=== PATIENT | female | born 1935 | race Caucasian/White ===

== ENCOUNTER 2017-02-05 12:46 | Inpatient (IN) | payer MEDICARE ==
[2017-02-05] MEDS ORDERED: IPRATROPIUM/ALBUTEROL (0.5MG/3MG) NEB INH ONE (13:06)
[2017-02-05] MEDS ORDERED: 0.9 % SODIUM CHLORIDE 1000ML 1,000 ML IV PRN ×2 (13:21→16:53)
--- NOTE | 2017-02-05 13:25 | Emergency Department Record ---
History of Present Illness - General Chief Complaint: Difficulty Breathing Stated Complaint: ANN Time Seen by Provider: 02/05/17 12:49 Source: Patient, Family, EMS, RN notes reviewed - History of Present Illness Initial Comments: EMS brought her to the ED . Confused and only oriented to name only. Fever of 101.6 by EMS. cough No chest pain.Pulse ox 84 % at scene. Improved with two liters with oxgen - Related Data Home Medications Medication Instructions Recorded Confirmed Last Taken Latanoprost 0.005% Opth Felisa 2.5 ml OP DAILY 01/25/14 02/05/17 02/05/17 [Xalatan] Fluticasone/Salmeterol [Advair 1 puff INH ASDIR 02/05/17 02/05/17 02/05/17 250-50 Diskus] Furosemide [Lasix] 20 mg PO WEEKLY 02/05/17 02/05/17 02/04/17 Metoprolol Succinate [Toprol Xl] 25 mg PO DAILY 02/05/17 02/05/17 02/05/17 Rivaroxaban [Xarelto] 20 mg PO DAILY 02/05/17 02/05/17 02/05/17 Spironolactone [Aldactone] 25 mg PO ASDIR 02/05/17 02/05/17 02/05/17 Allergies Allergy/AdvReac Type Severity Reaction Status Date / Time Carbapenems Allergy Unknown RASH Verified 02/05/17 13:46 cefaclor Allergy Unknown RASH Verified 02/05/17 13:46 Cephalosporins Allergy Unknown RASH Verified 02/05/17 13:46 erythromycin base Allergy Unknown RASH Verified 02/05/17 13:46 Macrolide Antibiotics Allergy Unknown RASH Verified 02/05/17 13:46 Penicillins Allergy Unknown RASH Verified 02/05/17 13:46 tetracycline Allergy Unknown RASH Verified 02/05/17 13:46 Allergies: Allergy Unknown RASH Uncoded 01/07/14 12:07 Review of Systems Reviewed: No additional complaints except as noted below Constitutional: Reports: As per HPI. Denies: Chills, Fever, Malaise, Night sweats, Weakness, Weight change Eyes: Reports: As per HPI. Denies: Eye discharge, Eye pain, Photophobia, Vision change ENT: Reports: As per HPI. Denies: Congestion, Dental pain, Ear pain, Epistaxis , Hearing loss, Throat pain Respiratory: Reports: As per HPI, Cough. Denies: Dyspnea, Hemoptysis, Stridor, Wheezes Cardiovascular: Reports: As per HPI. Denies: Arrhythmia, Chest pain, Dyspnea on exertion, Edema, Murmurs, Orthopnea, Palpitations, Paroxysmal nocturnal dyspnea, Rheumatic Fever, Syncope Endocrine: Reports: As per HPI. Denies: Fatigue, Heat or cold intolerance, Polydipsia, Polyuria Gastrointestinal: Reports: As per HPI. Denies: Abdominal pain, Constipation, Diarrhea, Hematemesis, Hematochezia, Melena, Nausea, Vomiting Genitourinary: Reports: As per HPI. Denies: Abnormal menses, Discharge, Dyspareunia, Dysuria, Frequency, Hematuria, Incontinence, Retention, Urgency Musculoskeletal: Reports: As per HPI. Denies: Arthralgia, Back pain, Gout, Joint swelling, Myalgia, Neck pain Skin: Reports: As per HPI. Denies: Bruising, Change in color, Change in hair/ nails, Lesions, Pruritus, Rash Neurological: Reports: As per HPI. Denies: Abnormal gait, Confusion, Headache, Numbness, Paresthesias, Seizure, Tingling, Tremors, Vertigo, Weakness Psychiatric: Reports: As per HPI. Denies: Anxiety, Auditory hallucinations, Depression, Homicidal thoughts, Suicidal thoughts, Visual hallucinations Hematological/Lymphatic: Reports: As per HPI. Denies: Anemia, Blood Clots, Easy bleeding, Easy bruising, Swollen glands Past Medical History - SOCIAL HISTORY Smoking Status: Former smoker - RESPIRATORY Hx Respiratory Disorders: Yes Hx COPD: Yes (smoker quit 2 weeks ago) - CARDIOVASCULAR Hx Cardio Disorders: No - NEURO Hx Neuro Disorders: No - GI Hx GI Disorders: Yes Hx Nausea/Vomiting: Yes - Hx Genitourinary Disorders: No - ENDOCRINE Hx Endocrine Disorders: No - MUSCULOSKELETAL Hx Musculoskeletal Disorders: Yes Hx Arthritis: Yes (knees jeison) - PSYCH Hx Psych Problems: No - HEMATOLOGY/ONCOLOGY Hx Hematology/Oncology Disorders: No Physical Exam - General General Appearance: Alert, Cooperative, Mild distress - Head Head exam: Normal inspection - Eye Eye exam: Normal appearance, PERRL Pupils: Normal accommodation - ENT ENT exam: Normal exam, Mucous membranes moist, Normal external ear exam, Normal orophraynx, TM's normal bilaterally Ear exam: Normal external inspection. negative: External canal tenderness Nasal Exam: Normal inspection. negative: Discharge, Sinus tenderness Mouth exam: Normal external inspection, Tongue normal Teeth exam: Normal inspection. negative: Dental caries Throat exam: Normal inspection. negative: Tonsillar erythema, Tonsillar exudate - Neck Neck exam: Normal inspection, Full ROM. negative: Tenderness - Respiratory Respiratory exam: Normal lung sounds bilaterally. negative: Respiratory distress - Cardiovascular Cardiovascular Exam: Regular rate, Normal rhythm, Normal heart sounds - GI/Abdominal GI/Abdominal exam: Soft, Normal bowel sounds. negative: Tenderness - Rectal Rectal exam: Deferred - exam: Deferred - Extremities Extremities exam: Normal inspection, Full ROM, Normal capillary refill, Other ( skin slightly red right lower leg). negative: Tenderness - Back Back exam: Reports: Normal inspection, Full ROM. Denies: Muscle spasm, Rash noted, Tenderness - Neurological Neurological exam: Alert, Normal gait, Oriented X3, Reflexes normal - Psychiatric Psychiatric exam: Normal affect, Normal mood - Skin Skin exam: Dry, Intact, Normal color, Warm Course Vital Signs 02/05/17 13:09 Pulse Rate 113 H Respiratory 19 Rate Pulse Ox 91 L Medical Decision Making - Lab Data Result diagrams: 02/05/17 12:50 02/05/17 12:50 Disposition Clinical Impression: Hypoxemia Sepsis Qualifiers: Sepsis type: sepsis due to unspecified organism Qualified Code(s): A41.9 - Sepsis, unspecified organism Altered mental state Qualifiers: Altered mental status type: disorientation Qualified Code(s): R41.0 - Disorientation, unspecified Forms: Patient Portal Access Quality - Quality Measures Quality Measures: N/A - Blood Pressure Screening Blood Pressure Classification: Pre-Hypertensive BP Reading Systolic Measurement: 132 Diastolic Measurement: 70 Screening for High Blood Pressure: < Pre-Hypertensive BP, F/U Documented > [ [id number]] Pre-Hypertensive Follow-up Interventions: Referral to alternative/primary care provider.
[2017-02-05] MEDS ORDERED: ASPIRIN 81 MG CHEWABLE TABLET PO ONE (13:27)
[2017-02-05 13:52] LABS: BASO % 0.2 % (0-6); EOS % 0.1 % (0-6); HEMATOCRIT 44.9 % (35.0-47.0); HEMOGLOBIN 14.9 gm/dl (11.6-16.0); LYMPH % 2.2 % (16-45); MEAN CELL VOLUME 96.1 fl (81-97); MEAN CORPUSCULAR HEMOGLOBIN 31.9 pg (27-33); MEAN CORPUSCULAR HGB CONC 33.2 g/dl (32-36); MEAN PLATELET VOLUME 10.3 fl (7.4-10.4); MONO % 1.8 % (0-9); PLATELET COUNT 317 K/uL (130-400); RED BLOOD COUNT 4.67 M/uL (3.80-5.40); WHITE BLOOD COUNT W/O DIFF 17.1 K/uL (4.2-12.2)
[2017-02-05 14:03] LABS: ANION GAP 10.1 (7-16); BLOOD UREA NITROGEN 10 mg/dL (7-17); CARBON DIOXIDE 28.9 mmol/L (22-30); CREATININE 0.6 mg/dL (0.52-1.04); EST GLOMERULAR FILTRATION RATE > 60 ml/min; GLUCOSE,RANDOM 105 mg/dL (70-110)
[2017-02-05 14:10] LABS: PLATELET ESTIMATE NORMAL (NORMAL)
[2017-02-05 14:18] LABS: TROPONIN I < 0.012 ng/mL (0.00-0.034)
[2017-02-05] MEDS ORDERED: LEVOFLOXACIN/D5W 750 MG/150 ML BAG IVPB ONE (16:04)
[2017-02-05 16:23] LABS: URINE APPEARANCE CLEAR; URINE BILIRUBIN NEGATIVE (NEGATIVE); URINE BLOOD NEGATIVE (NEGATIVE); URINE COLOR YELLOW; URINE GLUCOSE (UA) NEGATIVE (NEGATIVE); URINE KETONE NEGATIVE (NEGATIVE); URINE LEUKOCYTE ESTERASE NEGATIVE (NEGATIVE); URINE NITRITE NEGATIVE (NEGATIVE); URINE PROTEIN NEGATIVE (NEGATIVE); URINE UROBILINOGEN 0.2 E.U./dL (0.20 - 1.00)
[2017-02-05] MEDS ORDERED: ACETAMINOPHEN 500 MG TABLET PO PRN (16:53)
[2017-02-05] MEDS ORDERED: ALBUTEROL SULFATE (0.083%) 2.5 MG/3 ML NEB INH PRN (16:53)
[2017-02-05] MEDS ORDERED: AL HYDROX/MAG HYDROX 30ML UD PO PRN (16:53)
[2017-02-05] MEDS ORDERED: LATANOPROST 0.005% OPTH SOLUTION 2.5ML BOTTLE OPTH SCH (17:00)
[2017-02-05] MEDS ORDERED: ONDANSETRON HCL IV 4 MG/2 ML VIAL IVP ONE (17:32)
[2017-02-05] MEDS: FLUTICASONE/SALMETEROL 250/50 DISKUS INH SCH (18:21)
[2017-02-05] MEDS: IPRATROPIUM/ALBUTEROL (0.5MG/3MG) NEB INH SCH ×2 (18:22→21:52)
[2017-02-05] MEDS ORDERED: PNEUM 23-VAL ADULT IM ONE (18:31)
[2017-02-05] MEDS: METHYLPREDNISOLONE PF 125MG/VIAL IVP SCH (19:08)
[2017-02-05] MEDS: LEVOFLOXACIN/D5W 750 MG/150 ML BAG IVPB SCH (19:09)
[2017-02-05] MEDS: METOPROLOL SUCC 25 MG TAB.ER PO SCH (20:06)
[2017-02-05] MEDS ORDERED: ONDANSETRON HCL IV 4 MG/2 ML VIAL IVP PRN (21:40)
[2017-02-06] MEDS: METHYLPREDNISOLONE PF 125MG/VIAL IVP SCH ×3 (00:46→16:46)
[2017-02-06] MEDS ORDERED: 0.9 % SODIUM CHLORIDE 1000ML 1,000 ML IV PRN ×2 (06:41→12:56)
[2017-02-06] MEDS: FLUTICASONE/SALMETEROL 250/50 DISKUS INH SCH ×2 (07:01→18:42)
[2017-02-06] MEDS: IPRATROPIUM/ALBUTEROL (0.5MG/3MG) NEB INH SCH ×6 (07:01→21:24)
--- NOTE | 2017-02-06 07:12 | CT SCAN REPORT ---
EXAM: CT OF THE HEAD WITHOUT CONTRAST HISTORY: DIFFICULTY BREATHING. COUGH. CONFUSION. TECHNIQUE: Routine noncontrast CT images of the head were obtained. FINDINGS: The ventricles, basal cisterns, and sulci are minimally prominent consistent with generalized cerebral atrophy. There is periventricular hypoattenuation likely related to chronic microvascular ischemia. No evidence of acute ischemia. No intracranial mass or hemorrhage. Moderate left maxillary sinus mucosal thickening. IMPRESSION: 1. NO ACUTE INTRACRANIAL ABNORMALITY. 2. SENESCENT CHANGES. 3. MAXILLARY SINUSITIS. JOB NUMBER: [id number] [facility]
--- NOTE | 2017-02-06 07:15 | RADIOLOGY REPORT ---
EXAM: CHEST, TWO VIEWS HISTORY: FEVER AND COUGH FOR TWO DAYS. WEAKNESS. CONFUSION. TECHNIQUE: Two views of the chest were obtained. Comparison: 02/14/14. FINDINGS: Two leads overlie the chest. The cardiomediastinal silhouette is stable. Chronic interstitial prominence is noted. No convincing acute abnormality. No pleural effusions. IMPRESSION: STABLE CHEST. CHRONIC INTERSTITIAL PROMINENCE. PLEASE NOTE GIVEN INTERSTITIAL PROMINENCE, SUBTLE EARLY INTERSTITIAL INFILTRATES NOT EXCLUDED. JOB NUMBER: [id number] [facility]
[2017-02-06] MEDS: LATANOPROST 0.005% OPTH SOLUTION 2.5ML BOTTLE OPTH SCH ×2 (10:30→22:25)
[2017-02-06] MEDS: METOPROLOL SUCC 25 MG TAB.ER PO SCH (10:30)
[2017-02-06] MEDS: RIVAROXABAN 20 MG TABLET PO SCH (10:30)
--- NOTE | 2017-02-06 12:36 | History & Physical ---
History of Present Illness - Date of Service Date of Service for History & Physical: 02/06/17 - History of Present Illness Admitting Diagnosis: bronchitis. copd. hypoxia. sepsis. possible cellulitis of the right lower leg History of Present Illness: 81 y/o female with 1 day history of confusion and fever admitted for hypoxemia, altered mental status changes, possible sepsis, questionable community-acquired pneumonia, questionable RLE cellulitis. Past medical history includes former smoker (quit 2013), CHF, COPD, A-Fib, bilat knee arthritis. 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 Otherwise had been feeling well up until that time. After episode of diarrhea felt shaky and the next thing she knew she was in an ambulance en route to [facility]. She reports she had the Prevnar-13 last year with her original pneumonia vaccination < 10 years ago. Had pneumonia last year, and prior to that, had left lobe pneumonia in high school. While in the ED was oriented to name only, reported fever of 101.6 by EMS staff ( afebrile upon arrival), SPO2 84% on the scene. CT head with no acute intracranial abnormality, + maxillary sinusitis. CXR chronic interstitial prominence, subtle early interstitial infiltrates not excluded. D-dimer 0.21, Na 129, WBC 17.1. Cardiac enzymes normal. U/A negative. SPO2 91-94% on 2L. Laboratory Results WBC 17.1 K/uL (4.2-12.2) H 02/05/17 12:50 RBC 4.67 M/uL (3.80-5.40) 02/05/17 12:50 Hgb 14.9 gm/dl (11.6-16.0) 02/05/17 12:50 Hct 44.9 % (35.0-47.0) 02/05/17 12:50 MCV 96.1 fl (81-97) 02/05/17 12:50 MCH 31.9 pg (27-33) 02/05/17 12:50 MCHC 33.2 g/dl (32-36) 02/05/17 12:50 RDW 13.0 % (11.5-14.5) 02/05/17 12:50 Plt Count 317 K/uL (130-400) 02/05/17 12:50 MPV 10.3 fl (7.4-10.4) 02/05/17 12:50 Neutrophils % 94.0 % (47-80) H 02/05/17 12:50 Band Neutrophils % 2.0 % (0-5) 02/05/17 12:50 Lymphocytes % 2.2 % (16-45) L 02/05/17 12:50 Monocytes % 1.8 % (0-9) 02/05/17 12:50 Eosinophils % 0.1 % (0-6) 02/05/17 12:50 Basophils % 0.2 % (0-6) 02/05/17 12:50 Lymphocytes 2.0 % (16-45) L 02/05/17 12:50 Monocytes 2.0 % (0-9) 02/05/17 12:50 Platelet Estimate Normal (NORMAL) 02/05/17 12:50 RBC Morphology Normal 02/05/17 12:50 D-Dimer 0.21 mg/L FEU (0-0.59) 02/05/17 12:50 Sodium 129 mmol/L (136-145) L 02/05/17 12:50 Potassium 3.7 mmol/L (3.5-5.1) 02/05/17 12:50 Chloride 90 mmol/L (98-107) L 02/05/17 12:50 Carbon Dioxide 28.9 mmol/L (22-30) 02/05/17 12:50 Anion Gap 10.1 (7-16) 02/05/17 12:50 BUN 10 mg/dL (7-17) 02/05/17 12:50 Creatinine 0.6 mg/dL (0.52-1.04) 02/05/17 12:50 Estimated GFR > 60 ml/min 02/05/17 12:50 Random Glucose 105 mg/dL (70-110) 02/05/17 12:50 Calcium 8.7 mg/dL (8.5-10.1) 02/05/17 12:50 Troponin I < 0.012 ng/mL (0.00-0.034) 02/05/17 12:50 Urine Color Yellow 02/05/17 16:10 Urine Appearance Clear 02/05/17 16:10 Urine pH 5.5 (5.0-8.0) 02/05/17 16:10 Ur Specific [place] 1.020 (1.002-1.030) 02/05/17 16:10 Urine Protein Negative (NEGATIVE) 02/05/17 16:10 Urine Glucose (UA) Negative (NEGATIVE) 02/05/17 16:10 Urine Ketones Negative (NEGATIVE) 02/05/17 16:10 Urine Blood Negative (NEGATIVE) 02/05/17 16:10 Urine Nitrite Negative (NEGATIVE) 02/05/17 16:10 Urine Bilirubin Negative (NEGATIVE) 02/05/17 16:10 Urine Urobilinogen 0.2 E.U./dL (0.20 - 1.00) 02/05/17 16:10 Ur Leukocyte Esterase Negative (NEGATIVE) 02/05/17 16:10 02/06/17- resting in bed comfortably, A&o x 3. Reports she " is feeling like a million bucks". Denies chills, tremors, nausea, diarrhea, abdominal pain. Has been afebrile since admission. SPO2 96% 2L. Denies ANN, wheezing. Does continue to have a dry cough. She reports her blood pressure typically runs 90's/60-70. Denies any leg pain or discomfort today. PCP: Dr Quinn Travel Screening - Travel/Exposure Within Last 30 Days Have you traveled within the last 30 days?: No - Travel/Exposure Within Last Year Have you traveled outside the [place] in the last year?: No - Additonal Travel Details Have you been exposed to anyone with a communicable illness?: No - Travel Symptoms Symptom Screening: Fever (Subjective), Fever (GT 100.4), Weakness, Fatigue, Diarrhea, Vomiting, Lack of Appetite, Chills Review of Systems Constitutional: Reports: As per HPI. Denies: Chills, Fever, Malaise, Night sweats, Weakness, Weight change Eyes: Reports: As per HPI. Denies: Eye discharge, Eye pain, Photophobia, Vision change ENT: Reports: As per HPI. Denies: Congestion, Dental pain, Ear pain, Epistaxis , Hearing loss, Throat pain Respiratory: Reports: As per HPI, Cough. Denies: Dyspnea, Hemoptysis, Stridor, Wheezes Cardiovascular: Reports: As per HPI. Denies: Arrhythmia, Chest pain, Dyspnea on exertion, Edema, Murmurs, Orthopnea, Palpitations, Paroxysmal nocturnal dyspnea, Rheumatic Fever, Syncope Endocrine: Reports: As per HPI. Denies: Fatigue, Heat or cold intolerance, Polydipsia, Polyuria Gastrointestinal: Reports: As per HPI. Denies: Abdominal pain, Constipation, Diarrhea, Hematemesis, Hematochezia, Melena, Nausea, Vomiting Genitourinary: Reports: As per HPI. Denies: Abnormal menses, Discharge, Dyspareunia, Dysuria, Frequency, Hematuria, Incontinence, Retention, Urgency Musculoskeletal: Reports: As per HPI. Denies: Arthralgia, Back pain, Gout, Joint swelling, Myalgia, Neck pain Skin: Reports: As per HPI. Denies: Bruising, Change in color, Change in hair/ nails, Lesions, Pruritus, Rash Neurological: Reports: As per HPI. Denies: Abnormal gait, Confusion, Headache, Numbness, Paresthesias, Seizure, Tingling, Tremors, Vertigo, Weakness Psychiatric: Reports: As per HPI. Denies: Anxiety, Auditory hallucinations, Depression, Homicidal thoughts, Suicidal thoughts, Visual hallucinations Hematological/Lymphatic: Reports: As per HPI. Denies: Anemia, Blood Clots, Easy bleeding, Easy bruising, Swollen glands Past Medical History - SOCIAL HISTORY Smoking Status: Former smoker - RESPIRATORY Hx Respiratory Disorders: Yes Hx Bronchitis: Yes Hx COPD: Yes (smoker quit 2 weeks ago) Hx Pneumonia: Yes - CARDIOVASCULAR Hx Cardio Disorders: Yes Hx CHF: Yes Hx Irregular Heartbeat: Yes (afib) - NEURO Hx Neuro Disorders: No - GI Hx GI Disorders: Yes Hx Reflux: Yes Hx Nausea/Vomiting: Yes - Hx Genitourinary Disorders: No - ENDOCRINE Hx Endocrine Disorders: No - MUSCULOSKELETAL Hx Musculoskeletal Disorders: Yes Hx Arthritis: Yes (knees jeison) - PSYCH Hx Psych Problems: No - HEMATOLOGY/ONCOLOGY Hx Hematology/Oncology Disorders: No Hx Bruising: Yes (xarelto) Family Medical History Any Significant Family History?: No H&P Meds/Allergies - Allergies Allergies: Allergies Allergy/AdvReac Type Severity Reaction Status Date / Time Carbapenems Allergy Unknown RASH Verified 02/05/17 13:46 cefaclor Allergy Unknown RASH Verified 02/05/17 13:46 Cephalosporins Allergy Unknown RASH Verified 02/05/17 13:46 erythromycin base Allergy Unknown RASH Verified 02/05/17 13:46 Macrolide Antibiotics Allergy Unknown RASH Verified 02/05/17 13:46 Penicillins Allergy Unknown RASH Verified 02/05/17 13:46 tetracycline Allergy Unknown RASH Verified 02/05/17 13:46 Allergies: Allergy Unknown RASH Uncoded 01/07/14 12:07 - Home Medications Home Medications Medication Instructions Recorded Confirmed Last Taken Latanoprost 0.005% Opth Felisa 2.5 ml OP QHS 01/25/14 02/05/17 02/05/17 [Xalatan] Fluticasone/Salmeterol [Advair 1 puff INH BIDAC 02/05/17 02/05/17 02/05/17 250-50 Diskus] Furosemide [Lasix] 10 mg PO ASDIR 02/05/17 02/05/17 Unknown Metoprolol Succinate [Toprol Xl] 25 mg PO QHS 02/05/17 02/05/17 02/05/17 Rivaroxaban [Xarelto] 20 mg PO DAILY 02/05/17 02/05/17 02/05/17 Spironolactone [Aldactone] 25 mg PO QAM 02/05/17 02/05/17 02/05/17 25 - Active Medications Active Medications: Current Medications Acetaminophen (Tylenol 500mg Tab) 500 mg PO Q6H PRN PRN Reason: PAIN/TEMP Al Hydroxide/Mg Hydroxide (Maalox) 30 ml PO Q4H PRN PRN Reason: GI UPSET Albuterol Sulfate () 2.5 mg INH RESP.Q1H PRN PRN Reason: DIFFICULTY IN BREATHING Albuterol/Ipratropium (Duoneb) 3 ml INH RESP.Q4H.[facility] Last Admin: 02/06/17 10:10 Dose: Not Given Levofloxacin/Dextrose (Levaquin 750mg Ivpb) 750 mg in 150 mls @ 125 mls/hr IVPB Q24H NAYELI Stop: 02/10/17 17:01 Last Admin: 02/05/17 19:09 Dose: Not Given Sodium Chloride () 1,000 mls @ 75 mls/hr IV .[id number] PRN PRN Reason: LARGE VOLUME IV Latanoprost (Xalatan) 1 drop OPTH DAILY NAYELI Last Admin: 02/06/17 10:30 Dose: Not Given Methylprednisolone Sodium Succinate (Solu-Medrol) 60 mg IVP Q8H NAYELI Last Admin: 02/06/17 10:30 Dose: 60 mg Metoprolol Succinate (Toprol Xl) 25 mg PO DAILY [facility] Last Admin: 02/06/17 10:30 Dose: Not Given Ondansetron HCl (Zofran) 4 mg IVP Q6H PRN PRN Reason: NAUSEA Last Admin: 02/05/17 21:44 Dose: 4 mg Rivaroxaban (Xarelto) 20 mg PO DAILY [facility] Last Admin: 02/06/17 10:30 Dose: 20 mg Fluticasone/Salmeterol (Advair 250/50) 1 puff INH ASDIR [facility] Last Admin: 02/06/17 07:01 Dose: 1 puff Physical Exam - Vital Signs Vital Signs: Vital Signs - Last 24 Hrs Temp Pulse Pulse Pulse Resp BP BP 02/06/17 10:45 74 15 02/06/17 09:33 97.8 F 90/49 02/06/17 09:06 85 16 02/06/17 07:04 87 17 02/06/17 07:03 02/06/17 06:00 97.8 F 83 18 02/06/17 02:00 99.3 F 96 H 18 130/81 02/05/17 22:00 98.1 F 95 H 24 91/40 02/05/17 21:52 91 H 16 02/05/17 19:39 20 02/05/17 19:10 16 02/05/17 18:37 02/05/17 18:27 98.3 F 100 H 18 02/05/17 18:26 97 H 19 BP Pulse Ox 02/06/17 10:45 98 02/06/17 09:33 02/06/17 09:06 93/75 96 02/06/17 07:04 97 02/06/17 07:03 95 02/06/17 06:00 90/49 92 L 02/06/17 02:00 93 L 02/05/17 22:00 84/47 92 L 02/05/17 21:52 95 02/05/17 19:39 02/05/17 19:10 02/05/17 18:37 93 L 02/05/17 18:27 88/54 86 L 02/05/17 18:26 97 - General General Appearance: Alert, Oriented x3, Cooperative Limitations: No limitations - Head Head exam: Normal inspection - Eye Eye exam: Normal appearance, PERRL Pupils: Normal accommodation - ENT ENT exam: Normal exam, Mucous membranes moist, Normal external ear exam, Normal orophraynx, TM's normal bilaterally Ear exam: Normal external inspection. negative: External canal tenderness Nasal Exam: Normal inspection. negative: Discharge, Sinus tenderness Mouth exam: Normal external inspection, Tongue normal Teeth exam: Normal inspection. negative: Dental caries Throat exam: Normal inspection. negative: Tonsillar erythema, Tonsillar exudate - Neck Neck exam: Normal inspection, Full ROM. negative: Tenderness - Respiratory Respiratory exam: Normal lung sounds bilaterally. negative: Respiratory distress - Cardiovascular Cardiovascular Exam: Regular rate, Normal rhythm, Normal heart sounds Peripheral Pulses: 2+: Dorsalis Pedis (R), Dorsalis Pedis (L) - GI/Abdominal GI/Abdominal exam: Soft, Normal bowel sounds. negative: Tenderness - Rectal Rectal exam: Deferred - exam: Deferred - Extremities Extremities exam: Normal inspection, Full ROM, Normal capillary refill. negative: Pedal edema, Tenderness - Back Back exam: Reports: Normal inspection, Full ROM. Denies: Muscle spasm, Rash noted, Tenderness - Neurological Neurological exam: Alert, Normal gait, Oriented X3, Reflexes normal - Psychiatric Psychiatric exam: Normal affect, Normal mood - Skin Skin exam: Dry, Intact, Normal color, Warm. negative: Erythema Results - Labs Result Diagrams: 02/06/17 12:19 02/06/17 12:19 - Imaging and Cardiology Chest x-ray Status: Report reviewed (1- chronic interstitial prominence, 2- subtle ealry interstitial infiltrates not excluded) CT scan - head Status: Report reviewed (1- no acute intracranial abnormality, 2- + maxillary sinusitis) VTE H&P Assessment - Risk for VTE Risk for VTE: Yes Risk Level: Low Risk Assessment Date: 02/06/17 Risk Assessment Time: 12:40 VTE Orders Placed or Will Be Placed: Yes Plan - Inpatient Certification Inpatient Certification: Admit to inpatient care: Based on my medical assessment, after consideration of patient's risk factors (age, co-morbidities and patient presenting symptoms and acuity), I expect that this patient will remain in the hospital greater than or equal to two midnights and that the services needed warrant inpatient care because: Patient Risk Factors: [] Estimated length of stay: [] The patient may reasonably be expected to be discharged or transferred to a hospital within 96 hours after admission to [facility]. Services needed: [] Post hospital care (if known): [] I certify that my determination is in accordance with my understanding of Medicare requirements for reasonable and necessary inpatient services. - Detailed Diagnosis and Plan (1) Altered mental state Current Visit: Yes Status: Acute Qualifiers: Altered mental status type: disorientation Qualified Code(s): R41.0 - Disorientation, unspecified Base Code: R41.82 - ALTERED MENTAL STATUS, UNSPECIFIED Comment: 02/06/17 y/ o female admitted for 1 day history of diarrhea, altered mental status changes, febrile state, hypoxemia with preceeding 2 day history anorexia. CXR in ED with suspected pneumonia, CT head negative for acute intracranial process, + maxillary sinusitis. EKG NSR. WBC 17.1, D-dimer negative, cardiac enzymes negative, Na 129, U/A negative, afebrile upon arrival to ED, SBP< 100, RR 20, SPO2 91-96% on 2L. - qSOFA score upon arrival to ED-2 - likely etiology of infection lung infiltrates - O2 2L to keep SPO2>92% ( does not use at home) - BC x 2 pending- no growth to date - Levaquin 750mg Q 24 hours - Solumedrol 60mg Q 8hr - 0.9% NS @ 100ml/hr - Telemetry NSR - Advair 250/50 ( no known hx COPD but states her PCP treats all of her medical issues) (2) Hypoxemia Current Visit: Yes Status: Acute Base Code: R09.02 - HYPOXEMIA Comment: y/o female admitted for 1 day history of diarrhea, altered mental status changes, febrile state, hypoxemia with preceeding 2 day history anorexia. CXR in ED with suspected pneumonia, CT head negative for acute intracranial process, + maxillary sinusitis. EKG NSR. WBC 17.1, D-dimer negative , cardiac enzymes negative, Na 129, U/A negative, afebrile upon arrival to ED, SBP< 100, RR 20, SPO2 91-96% on 2L. - qSOFA score upon arrival to ED-2 - likely etiology of infection lung infiltrates - O2 2L to keep SPO2>92% ( does not use at home) - BC x 2 pending- no growth to date - Levaquin 750mg Q 24 hours - Solumedrol 60mg Q 8hr - 0.9% NS @ 75ml/hr - Advair 250/50 ( no known hx COPD but states her PCP treats all of her medical issues) (3) Sepsis Current Visit: Yes Status: Acute Qualifiers: Sepsis type: sepsis due to unspecified organism Qualified Code(s): A41.9 - Sepsis, unspecified organism Base Code: A41.9 - SEPSIS, UNSPECIFIED ORGANISM Comment: 02/06/17- 81 y/o female admitted for 1 day history of diarrhea, altered mental status changes, febrile state, hypoxemia with preceeding 2 day history anorexia. CXR in ED with suspected pneumonia, CT head negative for acute intracranial process, + maxillary sinusitis. EKG NSR. WBC 17.1, D-dimer negative, cardiac enzymes negative, Na 129, U/A negative, afebrile upon arrival to ED, SBP< 100, RR 20, SPO2 91-96% on 2L. Both legs appear very pino and slightly sunburnt. No warmth or tenderness - qSOFA score upon arrival to ED-2 - likely etiology of infection lung infiltrates - O2 2L to keep SPO2>92% ( does not use at home) - BC x 2 pending- no growth to date - Levaquin 750mg Q 24 hours - Solumedrol 60mg Q 8hr - 0.9% NS @ 75ml/hr - Advair 250/50 ( no known hx COPD but states her PCP treats all of her medical issues) (4) Hyponatremia Current Visit: No Status: Acute Base Code: E87.1 - HYPO-OSMOLALITY AND HYPONATREMIA Comment: 02/06/17- Na in ED 129 with acute change mental status prior to arrival to ED - Spironolactone may be part of causative factor - likely GI loss prior to arrival - increase IVF to NS @ 100ml/hr - salt rich broth given this am - CBC/CMP noon today (5) DVT prophylaxis Current Visit: Yes Status: Acute Base Code: [id number] - Comment: 02/06/17- On daily Xarelto, nursing to encourage frequent ambulation (6) DNR (do not resuscitate) Current Visit: Yes Status: Acute Base Code: Z66 - DO NOT RESUSCITATE Comment: 02/06/17- DNR during this hospitalization
[2017-02-06 12:42] LABS: HEMATOCRIT 40.8 % (35.0-47.0); HEMOGLOBIN 13.4 gm/dl (11.6-16.0); MEAN CELL VOLUME 96.2 fl (81-97); MEAN CORPUSCULAR HEMOGLOBIN 31.6 pg (27-33); MEAN CORPUSCULAR HGB CONC 32.8 g/dl (32-36); MEAN PLATELET VOLUME 9.9 fl (7.4-10.4); PLATELET COUNT 262 K/uL (130-400); RED BLOOD COUNT 4.24 M/uL (3.80-5.40); RED CELL DISTRIBUTION WIDTH 13.1 % (11.5-14.5); WHITE BLOOD COUNT W/O DIFF 14.5 K/uL (4.2-12.2)
[2017-02-06 12:59] LABS: ALB/GLOB RATIO 1.1 (1.1-1.8); ALBUMIN 3.5 gm/dL (3.5-5.0); ALKALINE PHOSPHATASE 137 U/L (38-126); ALT/SGPT 91 U/L (9-52); ANION GAP 9.9 (7-16); AST/SGOT 95 U/L (14-36); BILIRUBIN,TOTAL 1.09 mg/dL (0.2-1.3); BLOOD UREA NITROGEN 16 mg/dL (7-17); CARBON DIOXIDE 27.1 mmol/L (22-30); CREATININE 0.7 mg/dL (0.52-1.04); EST GLOMERULAR FILTRATION RATE > 60 ml/min; GLUCOSE,RANDOM 164 mg/dL (70-110); TOTAL PROTEIN 6.7 gm/dL (6.3-8.2)
[2017-02-06 13:12] LABS: PLATELET ESTIMATE NORMAL (NORMAL)
[2017-02-06] MEDS: LEVOFLOXACIN/D5W 750 MG/150 ML BAG IVPB SCH (16:46)
[2017-02-07] MEDS: IPRATROPIUM/ALBUTEROL (0.5MG/3MG) NEB INH SCH ×3 (06:22→14:12)
[2017-02-07 07:34] LABS: HEMOGLOBIN 12.9 gm/dl (11.6-16.0); MEAN CELL VOLUME 96.5 fl (81-97); MEAN CORPUSCULAR HEMOGLOBIN 31.9 pg (27-33); MEAN CORPUSCULAR HGB CONC 33.1 g/dl (32-36); MEAN PLATELET VOLUME 9.6 fl (7.4-10.4); PLATELET COUNT 287 K/uL (130-400); RED BLOOD COUNT 4.04 M/uL (3.80-5.40); WHITE BLOOD COUNT W/O DIFF 16.9 K/uL (4.2-12.2)
[2017-02-07 07:45] LABS: ALB/GLOB RATIO 1.1 (1.1-1.8); ALBUMIN 3.3 gm/dL (3.5-5.0); ALKALINE PHOSPHATASE 125 U/L (38-126); ALT/SGPT 67 U/L (9-52); ANION GAP 9.6 (7-16); AST/SGOT 45 U/L (14-36); BILIRUBIN,TOTAL 0.78 mg/dL (0.2-1.3); BLOOD UREA NITROGEN 16 mg/dL (7-17); CARBON DIOXIDE 28.4 mmol/L (22-30); CREATININE 0.6 mg/dL (0.52-1.04); EST GLOMERULAR FILTRATION RATE > 60 ml/min; GLUCOSE,RANDOM 132 mg/dL (70-110); TOTAL PROTEIN 6.2 gm/dL (6.3-8.2)
[2017-02-07] MEDS ORDERED: SPIRONOLACTONE 25 MG TAB PO SCH (10:00)
--- NOTE | 2017-02-07 10:30 | Discharge Summary ---
Providers Discharge Summary Date: 02/07/17 Date of admission: 02/05/17 18:14 Attending physician: AURY MAYA Primary care physician: Tammy Quinn Physical Exam - Vital Signs Vital Signs: Vital Signs - Last 24 Hrs Temp Pulse Pulse Resp BP BP Pulse Ox 02/07/17 09:42 91 H 17 99 02/07/17 09:25 97.7 F 95 H 16 100/60 95 02/07/17 06:22 86 18 100 02/07/17 05:38 97.6 F 87 18 105/70 97 02/07/17 02:00 97.7 F 98 H 16 105/63 98 02/06/17 21:24 93 H 18 100 02/06/17 21:00 92 H 16 02/06/17 19:59 98.1 F 91 H 18 101/60 97 02/06/17 18:43 93 H 16 100 02/06/17 17:24 96.8 F L 88 16 88/56 97 02/06/17 14:18 85 16 98 02/06/17 13:21 85 16 94/55 96 02/06/17 10:45 74 15 98 - General General Appearance: Alert, Oriented x3, Cooperative Limitations: No limitations - Head Head exam: Normal inspection - Eye Eye exam: Normal appearance, PERRL Pupils: Normal accommodation - ENT ENT exam: Normal exam, Mucous membranes moist, Normal external ear exam, Normal orophraynx, TM's normal bilaterally Ear exam: Normal external inspection. negative: External canal tenderness Nasal Exam: Normal inspection. negative: Discharge, Sinus tenderness Mouth exam: Normal external inspection, Tongue normal Teeth exam: Normal inspection. negative: Dental caries Throat exam: Normal inspection. negative: Tonsillar erythema, Tonsillar exudate - Neck Neck exam: Normal inspection, Full ROM. negative: Tenderness - Respiratory Respiratory exam: Normal lung sounds bilaterally. negative: Respiratory distress - Cardiovascular Cardiovascular Exam: Regular rate, Normal rhythm, Normal heart sounds Peripheral Pulses: 2+: Dorsalis Pedis (R), Dorsalis Pedis (L) - GI/Abdominal GI/Abdominal exam: Soft, Normal bowel sounds. negative: Tenderness - Rectal Rectal exam: Deferred - exam: Deferred - Extremities Extremities exam: Normal inspection, Full ROM, Normal capillary refill. negative: Pedal edema, Tenderness - Back Back exam: Reports: Normal inspection, Full ROM. Denies: Muscle spasm, Rash noted, Tenderness - Neurological Neurological exam: Alert, Normal gait, Oriented X3, Reflexes normal - Psychiatric Psychiatric exam: Normal affect, Normal mood - Skin Skin exam: Dry, Intact, Normal color, Warm. negative: Erythema Hospitalization - Hospitalization Admission Diagnosis: bronchitis. copd. hypoxia. sepsis. possible cellulitis of the right lower leg - Problem List/Discharge Diagnosis (1) Altered mental state Current Visit: Yes Status: Resolved Discharge Diagnosis: Altered mental status type: disorientation Qualified Code(s): R41.0 - Disorientation, unspecified Base Code: R41.82 - ALTERED MENTAL STATUS, UNSPECIFIED Comment: 02/07/17- 81 y/ o female admitted for 1 day history of diarrhea, altered mental status changes, febrile state, hypoxemia with preceeding 2 day history anorexia. CXR in ED with suspected pneumonia, CT head negative for acute intracranial process, + maxillary sinusitis. EKG NSR. WBC 17.1, D-dimer negative, cardiac enzymes negative, Na 129, U/A negative, afebrile upon arrival to ED, SBP< 100, RR 20, SPO2 91-96% on 2L. Sodium has since increased to 138. - qSOFA score upon arrival to ED-2 - likely etiology of infection lung infiltrates - O2 2L to keep SPO2>92% ( does not use at home) - BC x 2 pending- no growth to date - Levaquin 750mg Q 24 hours - Solumedrol 60mg Q 8hr - 0.9% NS @ 100ml/hr - Telemetry NSR - Advair 250/50 ( no known hx COPD but states her PCP treats all of her medical issues) (2) Hyponatremia Current Visit: No Status: Resolved Base Code: E87.1 - HYPO-OSMOLALITY AND HYPONATREMIA Comment: 02/07/17- Na in ED 129 with acute change mental status prior to arrival to ED. Today sodium 138. Significantly improved. - Spironolactone may be part of causative factor. this was held. Advise to see PCP regarding restaring - likely GI loss prior to arrival - increase IVF to NS @ 100ml/hr - salt rich broth given yesterday am - repeat labs in one week (3) Pneumonia Current Visit: Yes Status: Acute Discharge Diagnosis: Pneumonia type: due to unspecified organism Lung location: middle lobe of lung Base Code: J18.9 - PNEUMONIA, UNSPECIFIED ORGANISM Comment: 02/07- suspect pneumonia due to to 2 SIRS criteria, chest xray suspicous for esa infiltrate, hypoxemia per EMS and no other identifiable source of infection. Nguyễn cultured but awaiting culture results. Suspect slight rise in WBC due to steroid given yesterday. D/c since work of breathing is minimal. Treating for PNA and correcting sodium has significantly improved patient's picture. Patient eagar to go home and will plan on following up with PCP within the week. - Hospitalization Course Disposition: Home, Self-Care Abnormal Labs: Abnormal Lab Results 02/06/17 02/06/17 02/07/17 Range/Units 12:19 12:19 07:28 WBC 14.5 H 16.9 H (4.2-12.2) K/uL Neutrophils % 86.0 H 94.0 H (47-80) % Band Neutrophils % 12.0 H (0-5) % Lymphocytes 1.0 L 3.0 L (16-45) % Sodium 131 L (136-145) mmol/L Chloride 94 L (98-107) mmol/L Random Glucose 164 H (70-110) mg/dL Calcium 8.2 L (8.5-10.1) mg/dL AST 95 H (14-36) U/L ALT 91 H (9-52) U/L Alkaline Phosphatase 137 H (38-126) U/L Total Protein (6.3-8.2) gm/dL Albumin (3.5-5.0) gm/dL 02/07/17 Range/Units 07:28 WBC (4.2-12.2) K/uL Neutrophils % (47-80) % Band Neutrophils % (0-5) % Lymphocytes (16-45) % Sodium (136-145) mmol/L Chloride (98-107) mmol/L Random Glucose 132 H (70-110) mg/dL Calcium 8.2 L (8.5-10.1) mg/dL AST 45 H (14-36) U/L ALT 67 H (9-52) U/L Alkaline Phosphatase (38-126) U/L Total Protein 6.2 L (6.3-8.2) gm/dL Albumin 3.3 L (3.5-5.0) gm/dL Condition at Discharge: (2) Stable Discharge Medications - Discharge Medications Prescriptions: Levofloxacin [Levaquin] 500 mg PO DAILY #7 tablet Home Medications: Ambulatory Orders Latanoprost 0.005% Opth Felisa [Xalatan] 2.5 ml OP QHS 01/25/14 [Last Taken ] Fluticasone/Salmeterol [Advair 250-50 Diskus] 1 puff INH BIDAC 02/05/17 [Last Taken 02/05/17] Furosemide [Lasix] 10 mg PO ASDIR 02/05/17 [Last Taken Unknown] Metoprolol Succinate [Toprol Xl] 25 mg PO QHS 02/05/17 [Last Taken 02/05/17] Rivaroxaban [Xarelto] 20 mg PO DAILY 02/05/17 [Last Taken 02/05/17] Acetaminophen [Tylenol 500Mg Tab] 500 mg PO Q6H PRN 02/07/17 [Last Taken Unknown ] Levofloxacin [Levaquin] 500 mg PO DAILY #7 tablet 02/07/17 [Last Taken Unknown] Discharge Plan - Discharge Instructions Activity at Discharge: Increase Activity as Tolerated Diet at Discharge: Advance to Usual Diet
[2017-02-07] MEDS: RIVAROXABAN 20 MG TABLET PO SCH (10:34)
[2017-02-07] MEDS: METOPROLOL SUCC 25 MG TAB.ER PO SCH (10:34)
[2017-02-07] MEDS ORDERED: LATANOPROST 0.005% OPTH SOLUTION 2.5ML BOTTLE OPTH SCH (22:00)
[2017-02-08] MEDS ORDERED: FUROSEMIDE 20 MG TABLET PO SCH (10:00)
== END 2017-02-07 12:20 | disposition home or self-care (01) | DRG 194 ==
LOC: ER 12:46 → MEDSURG 18:14
PROVIDERS: ADMIT Family Medicine; ATTEND Family Medicine
DX: J18.9 Pneumonia, unspecified organism (principal); E87.1 Hypo-osmolality and hyponatremia; R41.82 Altered mental status, unspecified; R09.02 Hypoxemia
CPT/HCPCS: 99285 ×2; 94760; 96365; 96366; 96375; 84484; 80048; 81003; 85379; 85027; 71020; 70450; 94640 ×2; 94761; 93005; 93010; J2405; J1956; 80053; 99223; 99239; J2930

== ENCOUNTER 2017-04-06 07:01 | Day surgery (SDC) | payer MEDICARE ==
[2017-04-06] MEDS ORDERED: CIPROFLOXACIN HCL 0.0015 GM, PHENYLEPHRINE HCL 0.05 GM, KETOROLAC TROMETHAMINE 0.000625 GM MC ONE ×5 (14:30)
[2017-04-06] MEDS ORDERED: PROPOFOL 10 MG/ML VIAL IV ONE (15:02)
[2017-04-06] MEDS ORDERED: LIDOCAINE 2% MDV (20MG/ML) 20ML VIAL IV ONE (15:02)
--- NOTE | 2017-04-06 20:13 | Operative Note ---
DATE OF PROCEDURE: 04/06/17. PREOPERATIVE DIAGNOSIS: Nuclear sclerotic and posterior subcapsular cataract, right eye. POSTOPERATIVE DIAGNOSIS: Nuclear sclerotic and posterior subcapsular cataract, right eye. OPERATION: Phacoemulsification of cataractous lens with implantation of intraocular lens. LENS IMPLANT USED: Simons Model PCB00 + 19.0 diopters. COMPLICATIONS: None. PROCEDURE IN DETAIL: Following a retrobulbar and facial block, the patient was prepped and draped in the usual fashion for eye surgery. A lid speculum was placed in the right eye after which a 2.4 mm tunnel wound was placed at the temporal limbus and dissected into clear cornea. A paracentesis was placed at 2 o'clock hours to the left and right of the initial incision and the chamber deepened with Viscoelastic. The keratome was then used to enter the anterior chamber after which the continuous circular capsulorrhexis was accomplished without difficulty using a bent needle and a Utrata forceps. Hydrodissection and hydrodelineation of the lens was performed after which the nucleus of the lens was removed using the Phaco handpiece in the [id number] technique. The residual cortical material was irrigated and aspirated from the eye after which the bag and chamber were re-examined. The bag was re-inflated with Viscoelastic and the intraocular lens injected into the capsular bag where it centered well. The Viscoelastic was then copiously irrigated and aspirated from the eye after which the temporal tunnel wound and paracentesis were hydrated and the wounds were examined. They were noted to be watertight. The lid speculum was removed from the eye and the eye patched and shielded. The patient was transferred to the recovery room in satisfactory condition and given an appointment to be reexamined in the clinic later today or as directed by Dr. Coughlin. No complications. JOB NUMBER: [id number] [facility]
== END 2017-04-06 09:40 | disposition home or self-care (01) ==
LOC: SUR 07:01
PROVIDERS: ATTEND Ophthalmology
DX: H25.11 Age-related nuclear cataract, right eye (principal); I48.2 Chronic atrial fibrillation; Z79.01 Long term (current) use of anticoagulants; I10 Essential (primary) hypertension

== ENCOUNTER 2017-04-20 06:53 | Day surgery (SDC) | payer MEDICARE ==
[2017-04-20] MEDS ORDERED: LIDOCAINE 2% MDV (20MG/ML) 20ML VIAL IV ONE ×2 (14:04→15:40)
[2017-04-20] MEDS ORDERED: EPINEPHRINE 1 MG/ML AMPUL SQ ONE (14:04)
[2017-04-20] MEDS ORDERED: TETRACAINE HCL 0.5% 15 ML OPTH BTL OPTH ONE (14:04)
[2017-04-20] MEDS ORDERED: NEOMYCIN/POLY./DEXAM OPTH OINT OPTH ONE (14:04)
[2017-04-20] MEDS ORDERED: CIPROFLOXACIN HCL 0.0015 GM, PHENYLEPHRINE HCL 0.05 GM, KETOROLAC TROMETHAMINE 0.000625 GM MC ONE ×5 (14:15)
--- NOTE | 2017-04-20 15:23 | OP NOTE CHAMES ---
DATE OF PROCEDURE: 04/20/17 PREOPERATIVE DIAGNOSIS: Nuclear sclerotic cataract, left eye. POSTOPERATIVE DIAGNOSIS: Nuclear sclerotic cataract, left eye. OPERATION: Phacoemulsification of cataractous lens with implantation of intraocular lens. LENS IMPLANT USED: Simons Model PCB00 + 19.0 diopters. COMPLICATIONS: None. PROCEDURE IN DETAIL: Following a retrobulbar and facial block, the patient was prepped and draped in the usual fashion for eye surgery. A lid speculum was placed in the left eye after which a 2.4 mm tunnel wound was placed at the temporal limbus and dissected into clear cornea. A paracentesis was placed at 2 oclock hours to the left and right of the initial incision and the chamber deepened with Viscoelastic. The keratome was then used to enter the anterior chamber after which the continuous circular capsulorrhexis was accomplished without difficulty using a bent needle and a Utrata forceps. Hydrodissection and hydrodelineation of the lens was performed after which the nucleus of the lens was removed using the Phaco handpiece in the [id number] technique. The residual cortical material was irrigated and aspirated from the eye after which the bag and chamber were re-examined. The bag was re-inflated with Viscoelastic and the intraocular lens injected into the capsular bag where it centered well. The Viscoelastic was then copiously irrigated and aspirated from the eye after which the temporal tunnel wound and paracentesis were hydrated and the wounds were examined. They were noted to be watertight. The lid speculum was removed from the eye and the eye patched and shielded. The patient was transferred to the recovery room in satisfactory condition and given an appointment to be reexamined in the clinic later today or as directed by Dr. Coughlin. [facility]BER: [id number] [facility]
[2017-04-20] MEDS ORDERED: PROPOFOL 10 MG/ML VIAL IV ONE (15:40)
== END 2017-04-20 09:20 | disposition home or self-care (01) ==
LOC: SUR 06:53
PROVIDERS: ATTEND Ophthalmology
DX: H25.12 Age-related nuclear cataract, left eye (principal); I48.91 Unspecified atrial fibrillation; Z79.01 Long term (current) use of anticoagulants; Z87.891 Personal history of nicotine dependence
CPT/HCPCS: J0171

== ENCOUNTER 2017-07-15 09:19 | Emergency (ER) | payer MEDICARE ==
[2017-07-15] MEDS ORDERED: ASPIRIN 81 MG CHEWABLE TABLET PO ONE (09:35)
[2017-07-15] MEDS ORDERED: FUROSEMIDE IV 40MG/4ML VIAL IVP ONE (09:42)
--- NOTE | 2017-07-15 09:43 | Emergency Department Record ---
History of Present Illness - General Chief Complaint: Cough Stated Complaint: COUGH Time Seen by Provider: 07/15/17 09:23 Source: Patient, RN notes reviewed Mode of Arrival: Wheelchair - History of Present Illness Initial Comments: sob for three days and getting worse and productive yellow sputum and cough and history of CHF ,atrial fib and on xarelto. COPD and uses advair and she stopped smoking 2013. 5 pound weight gain. MD Complaint: Cough, Sore throat Onset/Timin -: Days(s) - Related Data Previous Rx's Medication Instructions Recorded Acetaminophen [Tylenol 500Mg Tab] 500 mg PO Q6H PRN 02/07/17 Albuterol Sulfate [Ventolin Hfa] 1 - 2 puff IH .EVERY 4-6 HRS PRN 07/15/17 #1 inhaler Albuterol Sulfate [Ventolin Hfa] 1 - 2 puff IH .EVERY 4-6 HRS PRN 07/15/17 #1 inhaler Furosemide [Lasix] 20 mg PO ASDIR #30 tablet 07/15/17 Furosemide [Lasix] 20 mg PO DAILY #30 tablet 07/15/17 Levofloxacin [Levaquin Tab] 500 mg PO DAILY #10 tab 07/15/17 Levofloxacin [Levaquin Tab] 500 mg PO DAILY #10 tab 07/15/17 Potassium Chloride 10 meq PO DAILY #30 tablet.er 07/15/17 Allergies Allergy/AdvReac Type Severity Reaction Status Date / Time Carbapenems Allergy Unknown RASH Verified 07/15/17 09:26 cefaclor Allergy Unknown RASH Verified 07/15/17 09:26 Cephalosporins Allergy Unknown RASH Verified 07/15/17 09:26 erythromycin base Allergy Unknown RASH Verified 07/15/17 09:26 Macrolide Antibiotics Allergy Unknown RASH Verified 07/15/17 09:26 Penicillins Allergy Unknown RASH Verified 07/15/17 09:26 tetracycline Allergy Unknown RASH Verified 07/15/17 09:26 Allergies: Allergy Unknown RASH Uncoded 07/15/17 09:26 Travel Screening - Travel/Exposure Within Last 30 Days Have you traveled within the last 30 days?: No - Travel/Exposure Within Last Year Have you traveled outside the [place] in the last year?: No - Additonal Travel Details Have you been exposed to anyone with a communicable illness?: No - Travel Symptoms Symptom Screening: None Review of Systems Reviewed: No additional complaints except as noted below Constitutional: Reports: As per HPI. Denies: Chills, Fever, Malaise, Night sweats, Weakness, Weight change Eyes: Reports: As per HPI. Denies: Eye discharge, Eye pain, Photophobia, Vision change ENT: Reports: As per HPI, Congestion. Denies: Dental pain, Ear pain, Epistaxis , Hearing loss, Throat pain Respiratory: Reports: As per HPI, Cough. Denies: Dyspnea, Hemoptysis, Stridor, Wheezes Cardiovascular: Reports: As per HPI. Denies: Arrhythmia, Chest pain, Dyspnea on exertion, Edema, Murmurs, Orthopnea, Palpitations, Paroxysmal nocturnal dyspnea, Rheumatic Fever, Syncope Endocrine: Reports: As per HPI. Denies: Fatigue, Heat or cold intolerance, Polydipsia, Polyuria Gastrointestinal: Reports: As per HPI, Diarrhea. Denies: Abdominal pain, Constipation, Hematemesis, Hematochezia, Melena, Nausea, Vomiting Genitourinary: Reports: As per HPI. Denies: Abnormal menses, Discharge, Dyspareunia, Dysuria, Frequency, Hematuria, Incontinence, Retention, Urgency Musculoskeletal: Reports: As per HPI. Denies: Arthralgia, Back pain, Gout, Joint swelling, Myalgia, Neck pain Skin: Reports: As per HPI. Denies: Bruising, Change in color, Change in hair/ nails, Lesions, Pruritus, Rash Neurological: Reports: As per HPI. Denies: Abnormal gait, Confusion, Headache, Numbness, Paresthesias, Seizure, Tingling, Tremors, Vertigo, Weakness Psychiatric: Reports: As per HPI. Denies: Anxiety, Auditory hallucinations, Depression, Homicidal thoughts, Suicidal thoughts, Visual hallucinations Hematological/Lymphatic: Reports: As per HPI. Denies: Anemia, Blood Clots, Easy bleeding, Easy bruising, Swollen glands Past Medical History - SOCIAL HISTORY Smoking Status: Former smoker Alcohol Use: None Drug Use: None - RESPIRATORY Hx Respiratory Disorders: Yes Hx Bronchitis: Yes Hx COPD: Yes (smoker quit 2 weeks ago) Hx Pneumonia: Yes Comment:: RECENT ADMISSION FOR PNEUMONIA IN - CARDIOVASCULAR Hx Cardio Disorders: Yes Hx CHF: Yes Hx Irregular Heartbeat: Yes (afib) - NEURO Hx Neuro Disorders: No - GI Hx GI Disorders: Yes Hx Reflux: Yes Hx Nausea/Vomiting: Yes - Hx Genitourinary Disorders: No - ENDOCRINE Hx Endocrine Disorders: No - MUSCULOSKELETAL Hx Musculoskeletal Disorders: Yes Hx Arthritis: Yes (knees jesion) - PSYCH Hx Psych Problems: No - HEMATOLOGY/ONCOLOGY Hx Bruising: Yes (xarelto) Comment:: hx Afib-on blood thinner Family Medical History Any Significant Family History?: Yes Physical Exam - General General Appearance: Alert, Oriented x3, Cooperative, No acute distress - Head Head exam: Normal inspection - Eye Eye exam: Normal appearance, PERRL Pupils: Normal accommodation - ENT ENT exam: Normal exam, Mucous membranes moist, Normal external ear exam, Normal orophraynx, TM's normal bilaterally Ear exam: Normal external inspection. negative: External canal tenderness Nasal Exam: Normal inspection. negative: Discharge, Sinus tenderness Mouth exam: Normal external inspection, Tongue normal Teeth exam: Normal inspection. negative: Dental caries Throat exam: Normal inspection. negative: Tonsillar erythema, Tonsillar exudate - Neck Neck exam: Normal inspection, Full ROM. negative: Tenderness - Respiratory Respiratory exam: Decreased breath sounds, Rales. negative: Respiratory distress - Cardiovascular Cardiovascular Exam: Regular rate, Normal rhythm, Normal heart sounds - GI/Abdominal GI/Abdominal exam: Soft, Normal bowel sounds. negative: Tenderness - Rectal Rectal exam: Deferred - exam: Deferred - Extremities Extremities exam: Normal inspection, Full ROM, Normal capillary refill. negative: Tenderness - Back Back exam: Reports: Normal inspection, Full ROM. Denies: Muscle spasm, Rash noted, Tenderness - Neurological Neurological exam: Alert, Normal gait, Oriented X3, Reflexes normal - Psychiatric Psychiatric exam: Normal affect, Normal mood - Skin Skin exam: Dry, Intact, Normal color, Warm Course Vital Signs 07/15/17 09:20 Temperature 98.0 F Pulse Rate 100 H Respiratory 18 Rate Blood Pressure 150/75 Pulse Ox 92 L - Reevaluation(s) Reevaluation #1: natty is breathing better and would like to go home 07/15/17 11:10 Medical Decision Making - Lab Data Result diagrams: 07/15/17 09:40 07/15/17 09:40 Disposition Clinical Impression: Bronchitis CHF (congestive heart failure) Qualifiers: Congestive heart failure type: unspecified congestive heart failure type Congestive heart failure chronicity: acute Qualified Code(s): I50.9 - Heart failure, unspecified COPD (chronic obstructive pulmonary disease) Qualifiers: COPD type: unspecified COPD Qualified Code(s): J44.9 - Chronic obstructive pulmonary disease, unspecified Disposition: Home, Self-Care Condition: (1) Good Instructions: Heart Failure (ED), Acute Bronchitis (ED), COPD (Chronic Obstructive Pulmonary Disease) (ED) Additional Instructions: use lasix 20 mg once a day for one week. follow up with Dr. Lozoya on at 10:00 am and if worse return to the ED. levaquin once a day ventolin inhaler 2 puff every four hours Prescriptions: Albuterol Sulfate [Ventolin Hfa] 1 - 2 puff IH .EVERY 4-6 HRS PRN #1 inhaler PRN Reason: Wheezing Albuterol Sulfate [Ventolin Hfa] 1 - 2 puff IH .EVERY 4-6 HRS PRN #1 inhaler PRN Reason: Wheezing Furosemide [Lasix] 20 mg PO DAILY #30 tablet Furosemide [Lasix] 20 mg PO ASDIR #30 tablet Levofloxacin [Levaquin Tab] 500 mg PO DAILY #10 tab Levofloxacin [Levaquin Tab] 500 mg PO DAILY #10 tab Potassium Chloride 10 meq PO DAILY #30 tablet.er Forms: Patient Portal Access Time of Disposition: 11:19 Quality - Quality Measures Quality Measures: N/A - Blood Pressure Screening Does Patient Have Any of the Following: No, Active Dx of HTN Blood Pressure Classification: Hypertensive Reading Systolic Measurement: 150 Diastolic Measurement: 75 Screening for High Blood Pressure: Patient Exclusion, Hx of HTN [G9744]
[2017-07-15 09:51] LABS: HEMATOCRIT 42.2 % (35.0-47.0); HEMOGLOBIN 13.6 gm/dl (11.6-16.0); MEAN CELL VOLUME 96.1 fl (81-97); MEAN CORPUSCULAR HGB CONC 32.2 g/dl (32-36); MEAN PLATELET VOLUME 9.7 fl (7.4-10.4); PLATELET COUNT 332 K/uL (130-400); RED BLOOD COUNT 4.39 M/uL (3.80-5.40); RED CELL DISTRIBUTION WIDTH 12.9 % (11.5-14.5)
[2017-07-15 09:58] LABS: PLATELET ESTIMATE NORMAL (NORMAL)
[2017-07-15 10:03] LABS: INR 1.06; PARTIAL THROMBOPLASTIN TIME 30.6 SECONDS (24.5-39.1); PROTHROMBIN TIME (PATIENT) 11.5 SECONDS (9.5-12.1)
[2017-07-15 10:04] LABS: BLOOD UREA NITROGEN 11 mg/dL (8-23); CREATININE 0.6 mg/dL (0.5-0.9); EST GLOMERULAR FILTRATION RATE > 60 mL/min
[2017-07-15 10:07] LABS: GLUCOSE,RANDOM 104 mg/dL (74-109)
[2017-07-15 10:11] LABS: CKMB 2.1 ng/mL (<3.77)
[2017-07-15] MEDS ORDERED: ONDANSETRON HCL IV 4 MG/2 ML VIAL IVP ONE (10:20)
[2017-07-15] MEDS ORDERED: LEVOFLOXACIN 500 MG TABLET PO ONE (11:11)
--- NOTE | 2017-07-15 19:59 | RADIOLOGY REPORT ---
EXAM: CHEST 2 VIEWS HISTORY: PRODUCTIVE COUGH. SHORTNESS OF BREATH. HISTORY OF CHF AND COPD. TECHNIQUE: PA and lateral upright views of the chest were obtained. COMPARISON: February 05, 2017. FINDINGS: The heart is normal in size. There is calcification and tortuosity of the aorta. The mediastinum and pulmonary vasculature are otherwise normal. The lungs are hyperinflated consistent with COPD. Chronic interstitial changes and fibrotic changes are present within both lungs and are not significantly different. There are no visible acute infiltrates or effusions. There is no pneumothorax. Degenerative changes are present within both shoulders. There are no acute osseous abnormalities. IMPRESSION: 1. STABLE COPD WITH UNDERLYING CHRONIC INTERSTITIAL CHANGES/FIBROSIS. 2. NO ACUTE INTRATHORACIC PATHOLOGY. JOB NUMBER: [id number] [facility]
== END 2017-07-15 11:43 | disposition home or self-care (01) ==
LOC: ER 09:19
DX: J20.9 Acute bronchitis, unspecified (principal); J44.0 Chronic obstructive pulmonary disease with (acute) lower respiratory infection; I50.9 Heart failure, unspecified; I48.91 Unspecified atrial fibrillation; Z79.01 Long term (current) use of anticoagulants; Z87.891 Personal history of nicotine dependence
CPT/HCPCS: 71020; 80048; 82553; 84484; 85027; 85610; 85730; 93005; 93010; 96374; 96375; 99284; J1940; J2405

== ENCOUNTER 2019-06-07 09:11 | Emergency (ER) | payer MEDICARE ==
[2019-06-07] MEDS ORDERED: IPRATROPIUM/ALBUTEROL (0.5MG/3MG) NEB INH ONE (09:42)
[2019-06-07 09:55] LABS: ABSOLUTE NEUTROPHIL COUNT 7.47; HEMATOCRIT 45.1 % (35.0-47.0); HEMOGLOBIN 14.4 gm/dl (11.6-16.0); MEAN CORPUSCULAR HGB CONC 31.9 g/dl (32-36); PLATELET COUNT 294 K/uL (130-400); RED BLOOD COUNT 4.65 M/uL (3.80-5.40); RED CELL DISTRIBUTION WIDTH 14.2 % (11.5-14.5); WHITE BLOOD COUNT W/O DIFF 8.5 K/uL (4.2-12.2)
[2019-06-07 10:07] LABS: BLOOD UREA NITROGEN 13 mg/dL (8-23); CREATININE 0.8 mg/dL (0.5-0.9); EST GLOMERULAR FILTRATION RATE > 60 mL/min; PLATELET ESTIMATE NORMAL (NORMAL); TOTAL PROTEIN 7.1 g/dL (6.6-8.7)
[2019-06-07 10:10] LABS: GLUCOSE,RANDOM 105 mg/dL (74-109)
[2019-06-07 10:12] LABS: ALB/GLOB RATIO 1.2 (1.1-1.8); ALBUMIN 3.8 g/dL (4.0-5.0); ALKALINE PHOSPHATASE 138 U/L (35-104); ALT/SGPT 21 U/L (<33); AST/SGOT 25 U/L (10.0-35.0)
--- NOTE | 2019-06-07 10:29 | RADIOLOGY REPORT ---
EXAMINATION: Two View Chest Radiographs EXAM DATE: 06/07/2019 10:10 AM TECHNIQUE: Frontal and lateral views INDICATION: cough COMPARISON: 02/05/2017 ENCOUNTER: Not applicable FINDINGS: Normal heart size. Chronic pulmonary hyperinflation with pulmonary fibrosis and scarring. No acute in filtrate. No pneumothorax or pleural effusion. IMPRESSION: Chronic hyperinflation and pulmonary fibrosis without acute cardiopulmonary disease. Dictated by: Piter Dunn MD on 06/07/2019 10:26 AM. .
[2019-06-07] MEDS ORDERED: METHYLPREDNISOLONE PF 125MG/VIAL IVP ONE (11:19)
--- NOTE | 2019-06-07 11:27 | Emergency Department Record ---
History of Present Illness - General Chief Complaint: Cough Stated Complaint: COUGHING/CHILLS/NAUSEA Time Seen by Provider: 06/07/19 09:21 Source: Patient Mode of Arrival: Wheelchair Limitations: No limitations - History of Present Illness Initial Comments: pt has been sick for a month. she has a cough and sob. she also has nausea and diarrhea many times a day. she has had 2 sourses of abx MD Complaint: Cough, Nasal congestion Onset/Timin -: Month(s) Quality: Burning Consistency: Constant Associated Symptoms: Cough, Diarrhea, Nausea, Shortness of breath - Related Data Previous Rx's Medication Instructions Recorded Acetaminophen [Tylenol 500Mg Tab] 500 mg PO Q6H PRN 02/07/17 Albuterol Sulfate [Ventolin Hfa] 1 - 2 puff IH .EVERY 4-6 HRS PRN 07/15/17 #1 inhaler Albuterol Sulfate [Ventolin Hfa] 1 - 2 puff IH .EVERY 4-6 HRS PRN 07/15/17 #1 inhaler Furosemide [Lasix] 20 mg PO ASDIR #30 tablet 07/15/17 Furosemide [Lasix] 20 mg PO DAILY #30 tablet 07/15/17 Levofloxacin [Levaquin Tab] 500 mg PO DAILY #10 tab 07/15/17 Levofloxacin [Levaquin Tab] 500 mg PO DAILY #10 tab 07/15/17 Potassium Chloride 10 meq PO DAILY #30 tablet.er 07/15/17 Prednisone [Prednisone 20Mg] 20 mg PO Q12HR #8 tab 06/07/19 Allergies Allergy/AdvReac Type Severity Reaction Status Date / Time Carbapenems Allergy Unknown RASH Verified 06/07/19 09:16 cefaclor Allergy Unknown RASH Verified 06/07/19 09:16 Cephalosporins Allergy Unknown RASH Verified 06/07/19 09:16 erythromycin base Allergy Unknown RASH Verified 06/07/19 09:16 Macrolide Antibiotics Allergy Unknown RASH Verified 06/07/19 09:16 Penicillins Allergy Unknown RASH Verified 06/07/19 09:16 tetracycline Allergy Unknown RASH Verified 06/07/19 09:16 Allergies: Allergy Unknown RASH Uncoded 07/15/17 09:26 Travel Screening - Travel/Exposure Within Last 30 Days Have you traveled within the last 30 days?: No - Travel/Exposure Within Last Year Have you traveled outside the [place] in the last year?: No - Additonal Travel Details Have you been exposed to anyone with a communicable illness?: No - Travel Symptoms Symptom Screening: None Review of Systems Reviewed: No additional complaints except as noted below Constitutional: Reports: As per HPI. Denies: Chills, Fever, Malaise, Night sweats, Weakness, Weight change Eyes: Reports: As per HPI. Denies: Eye discharge, Eye pain, Photophobia, Vision change ENT: Reports: As per HPI. Denies: Congestion, Dental pain, Ear pain, Epistaxis, Hearing loss, Throat pain Respiratory: Reports: As per HPI. Denies: Cough, Dyspnea, Hemoptysis, Stridor, Wheezes Cardiovascular: Reports: As per HPI. Denies: Arrhythmia, Chest pain, Dyspnea on exertion, Edema, Murmurs, Orthopnea, Palpitations, Paroxysmal nocturnal dyspnea, Rheumatic Fever, Syncope Endocrine: Reports: As per HPI. Denies: Fatigue, Heat or cold intolerance, Polydipsia, Polyuria Gastrointestinal: Reports: As per HPI. Denies: Abdominal pain, Constipation, Diarrhea, Hematemesis, Hematochezia, Melena, Nausea, Vomiting Genitourinary: Reports: As per HPI. Denies: Abnormal menses, Discharge, Dyspareunia, Dysuria, Frequency, Hematuria, Incontinence, Retention, Urgency Musculoskeletal: Reports: As per HPI. Denies: Arthralgia, Back pain, Gout, Joint swelling, Myalgia, Neck pain Skin: Reports: As per HPI. Denies: Bruising, Change in color, Change in hair/nails, Lesions, Pruritus, Rash Neurological: Reports: As per HPI. Denies: Abnormal gait, Confusion, Headache, Numbness, Paresthesias, Seizure, Tingling, Tremors, Vertigo, Weakness Psychiatric: Reports: As per HPI. Denies: Anxiety, Auditory hallucinations, Depression, Homicidal thoughts, Suicidal thoughts, Visual hallucinations Hematological/Lymphatic: Reports: As per HPI. Denies: Anemia, Blood Clots, Easy bleeding, Easy bruising, Swollen glands Past Medical History - SOCIAL HISTORY Smoking Status: Former smoker Alcohol Use: Occasional Drug Use: None - RESPIRATORY Hx Respiratory Disorders: Yes Hx Bronchitis: Yes Hx COPD: Yes (smoker quit 2 weeks ago) Hx Pneumonia: Yes Comment:: RECENT ADMISSION FOR PNEUMONIA IN - CARDIOVASCULAR Hx Cardio Disorders: Yes Hx CHF: Yes Hx Irregular Heartbeat: Yes (afib) - NEURO Hx Neuro Disorders: No - GI Hx GI Disorders: Yes Hx Reflux: Yes Hx Nausea/Vomiting: Yes - Hx Genitourinary Disorders: No - ENDOCRINE Hx Endocrine Disorders: No - MUSCULOSKELETAL Hx Musculoskeletal Disorders: Yes Hx Arthritis: Yes (knees jeison) - PSYCH Hx Psych Problems: No - HEMATOLOGY/ONCOLOGY Hx Hematology/Oncology Disorders: No Hx Bruising: Yes (xarelto) Comment:: hx Afib-on blood thinner Family Medical History Any Significant Family History?: No Physical Exam - General General Appearance: Alert, Oriented x3, Cooperative, Mild distress - Head Head exam: Normal inspection - Eye Eye exam: Normal appearance, PERRL, EOMI Pupils: Normal accommodation - ENT ENT exam: Normal exam, Mucous membranes moist, Normal external ear exam, Normal orophraynx Ear exam: Normal external inspection. negative: External canal tenderness Nasal Exam: Normal inspection. negative: Discharge, Sinus tenderness Mouth exam: Normal external inspection, Tongue normal Teeth exam: Normal inspection. negative: Dental caries Throat exam: Normal inspection. negative: Tonsillar erythema, Tonsillar exudate - Neck Neck exam: Normal inspection, Full ROM. negative: Tenderness - Respiratory Respiratory exam: Wheezes. negative: Respiratory distress - Cardiovascular Cardiovascular Exam: Regular rate, Normal rhythm, Normal heart sounds - GI/Abdominal GI/Abdominal exam: Soft, Normal bowel sounds. negative: Tenderness - Rectal Rectal exam: Deferred - exam: Deferred - Extremities Extremities exam: Normal inspection, Full ROM, Normal capillary refill. negative: Tenderness - Back Back exam: Reports: Normal inspection, Full ROM. Denies: Muscle spasm, Rash noted, Tenderness - Neurological Neurological exam: Alert, CN II-XII intact, Normal gait, Oriented X3 - Psychiatric Psychiatric exam: Normal affect, Normal mood - Skin Skin exam: Dry, Intact, Normal color, Warm Course Vital Signs 06/07/19 06/07/19 09:18 10:05 Temperature 98.7 F Pulse Rate 94 H 98 H Respiratory 20 18 Rate Blood Pressure 124/65 Pulse Ox 95 92 L - Reevaluation(s) Reevaluation #1: 06/07/19 14:05 pt feels much better Reevaluation #2: 06/07/19 14:05 pt ready to go home Medical Decision Making - Lab Data Result diagrams: 06/07/19 09:25 06/07/19 09:25 Lab Results 06/07/19 06/07/19 06/07/19 Range/Units 09:25 09:25 09:25 WBC 8.5 (4.2-12.2) K/uL RBC 4.65 (3.80-5.40) M/uL Hgb 14.4 (11.6-16.0) gm/dl Hct 45.1 (35.0-47.0) % MCV 97.0 (81-97) fl MCH 31.0 (27-33) pg MCHC 31.9 L (32-36) g/dl RDW 14.2 (11.5-14.5) % Plt Count 294 (130-400) K/uL MPV 10.0 (7.4-10.4) fl Neutrophils % 85.0 H (47-80) % Band Neutrophils % 8.0 H (0-5) % Eosinophils % Not Reportable Basophils % Not Reportable Absolute Neutrophils 7.47 Lymphocytes 3.0 L (16-45) % Monocytes 3.0 (0-9) % Platelet Estimate Normal (NORMAL) RBC Morphology Normal Eosinophil Count 1.0 (0-6) % Sodium 130 L (136-145) mmol/L Potassium 3.6 (3.4-4.5) mmol/L Chloride 90 L (98-107) mmol/L Carbon Dioxide 25.0 (22-29) mmol/L Anion Gap 15.0 (7-16) BUN 13 (8-23) mg/dL Creatinine 0.8 (0.5-0.9) mg/dL Estimated GFR > 60 mL/min Random Glucose 105 (74-109) mg/dL Calcium 8.9 (8.8-10.2) mg/dL Total Bilirubin 0.50 (0.2-1.0) mg/dL AST 25 (10.0-35.0) U/L ALT 21 (<33) U/L Alkaline Phosphatase 138 H (35-104) U/L NT-Pro-B Natriuret Pep 1009.00 H (<450) pg/mL Total Protein 7.1 (6.6-8.7) g/dL Albumin 3.8 L (4.0-5.0) g/dL Globulin 3.3 (1.4-4.8) gm/dL Albumin/Globulin Ratio 1.2 (1.1-1.8) Disposition Disposition: Discharge Clinical Impression: Nausea & vomiting Qualifiers: Vomiting type: unspecified Vomiting Intractability: non-intractable Qualified Code(s): R11.2 - Nausea with vomiting, unspecified COPD (chronic obstructive pulmonary disease) Qualifiers: COPD type: unspecified COPD Qualified Code(s): J44.9 - Chronic obstructive pulmonary disease, unspecified Diarrhea Qualifiers: Diarrhea type: infectious Qualified Code(s): A09 - Infectious gastroenteritis and colitis, unspecified Disposition: Home, Self-Care Condition: (1) Good Instructions: COPD (Chronic Obstructive Pulmonary Disease) (ED), Emphysema (ED), Acute Nausea and Vomiting (ED), Acute Diarrhea (ED) Additional Instructions: follow up with family doctor. return sooner if worse. Prescriptions: Prednisone [Prednisone 20Mg] 20 mg PO Q12HR #8 tab Forms: Patient Portal Access Quality - Quality Measures Quality Measures: N/A - Blood Pressure Screening Does Patient Have Any of the Following: No Blood Pressure Classification: Pre-Hypertensive BP Reading Systolic Measurement: 124 Diastolic Measurement: 65 Screening for High Blood Pressure: < Pre-Hypertensive BP, F/U Documented > [G8950] Pre-Hypertensive Follow-up Interventions: Follow-up with rescreen every year.
[2019-06-07] MEDS ORDERED: ONDANSETRON HCL IV 4 MG/2 ML VIAL IVP ONE (12:00)
[2019-06-07] MEDS ORDERED: 0.9 % SODIUM CHLORIDE 1,000 ML BAG IV ONE (12:00)
[2019-06-07 13:45] LABS: URINE APPEARANCE CLEAR; URINE BILIRUBIN SMALL (NEGATIVE); URINE BLOOD MODERATE (NEGATIVE); URINE COLOR YELLOW; URINE GLUCOSE (UA) NEGATIVE (NEGATIVE); URINE KETONE 15 mg/dL (NEGATIVE); URINE NITRITE NEGATIVE (NEGATIVE); URINE UROBILINOGEN 0.2 E.U./dL (0.20 - 1.00)
[2019-06-07 13:56] LABS: URINE LEUKOCYTE ESTERASE TRACE (NEGATIVE)
[2019-06-07 13:57] LABS: URINE WBC 0 - 2 (0-2/hpf)
== END 2019-06-07 14:23 | disposition home or self-care (01) ==
LOC: ER 09:11
DX: J44.9 Chronic obstructive pulmonary disease, unspecified (principal); A09 Infectious gastroenteritis and colitis, unspecified; R06.02 Shortness of breath; R11.2 Nausea with vomiting, unspecified
CPT/HCPCS: 99284 ×2; 96374; 96375; 96361; 80053; 81001; 85027; 83880; 71046; 94640; J2405; J2930; J7030